=== PATIENT | female | born 1990 | race Two or more races ===

== ENCOUNTER 2025-02-03 20:28 | Emergency (ER) | payer OTHER ==
[~2025-02-03] VITALS: Ht 157.5 cm; Wt 147.0 kg
--- NOTE | 2025-02-03 20:44 | ED.PDOC ---
SOB-HPI HPI Comments 34-year-old female with PMHx Asthma presents with a chief complaint of SOB at rest x 3 hours with associated wheezing and cough. Patient states that she has been feeling increasingly SOB and attempted to alleviate it with her inhaler at home, but denies any relief after usage. Patient relays that she has a cough that is productive. Patient denies any sick contacts at home. Patient was sating at 81% on room air and was placed on 2L/NC and is now sating at 98%. Patient does not use supplemental oxygen at home. Patient denies any chest pain, abdomen pain, headache, nausea, vomiting, or diarrhea. No other symptoms or modifying factors present at this time. Chief Complaint: Shortness of Breath Time Seen by MD: 20:37 Reviewed notes: Medications, Allergies Information Source: Patient Mode of Arrival: Wheelchair Severity: Moderate Timing: Hours Duration: Since onset Context: At Rest PE Risk Factors: None History of: Asthma Prehospital treatment: Other (INHALER) Modifying Factors: Exertion Associated Signs and Symptoms: Wheeze, Cough If cough with SOB: Productive Past Medical History PAST MEDICAL HISTORY: Asthma Past Medical History (Other): SINUSITIS Surgical History: Denies all surgeries [employer] History: Denies all [employer] Hx Family History Family History: Reviewed,noncontributory to illness Social History Smoker: Non-Smoker Alcohol: Denies ETOH Use Drugs: Denies Drug Use Lives In: Home Constitutional: denies: chills, diaphoresis, fatigue, fever, malaise, sweats, weakness, others EENTM: denies: blurred vision, double vision, ear bleeding, ear discharge, ear drainage, ear pain, ear ringing, eye pain, eye redness, hearing loss, mouth pain, mouth swelling, nasal discharge, nose bleeding, nose congestion, nose pain, photophobia, tearing, throat pain, throat swelling, voice changes, others Respiratory: reports: cough, shortness of breath, wheezing; denies: hemoptysis, orthopnea, SOB at rest, SOB with excertion, stridor, others Cardiovascular: denies: chest pain, dizzy spells, diaphoresis, Dyspnea on exertion, edema, irregular heart beat, left arm pain, lightheadedness, palpitations, PND, syncope, others Gastrointestinal: denies: abdomen distended, abdominal pain, blood streaked bowels, constipated, diarrhea, dysphagia, difficulty swallowing, hematemesis, melena, nausea, poor appetite, poor fluid intake, rectal bleeding, rectal pain, vomiting, others Genitourinary: denies: abnormal vagina bleeding, burning, dyspareunia, dysuria, flank pain, frequency, hematuria, incontinence, pain, , vagina discharge , urgency, others Neurological: denies: dizziness, fainting, headache, left sided numbness, left sided weakness, numbness, paresthesia, pre-existing deficit, right sided numbness, right sided weakness, seizure, speech problems, tingling, tremors, weakness, others Musculoskeletal: denies: back pain, gout, joint pain, joint swelling, muscle pain, muscle stiffness, neck pain, others Integumetry: denies: bruises, change in color, change in hair/nails, dryness, laceration, lesions, lumps, rash, wounds, others Allergic/Immunocompromised: denies: Difficulty Healing, Frequent Infections, Hives, Itching, others Hematologic/Lymphatic: denies: anemia, blood clots, easy bleeding, easy bruising, swollen glands, others Endocrine: denies: excessive hunger, excessive sweating, excessive thirst, excessive urination, flushing, intolerance to cold, intolerance to heat, unexplained weight gain, unexplained weight loss, others Psychiatric: denies: anxiety, bipolar disorder, depression, hopeless, panic di sorder, schizophrenia, sleepless, suicidal, others All Other Systems: Reviewed and Negative Physical Exam General Appearance: Mild Distress, Obese HEENT: Normal ENT Inspection, Pharynx Normal, TMs Normal Neck: NOT DONE Respiratory: Wheezing (Diffuse Bilateral inspiratory and expiratory wheezes) Cardiovascular: No Edema, No JVD, No Murmur, No Gallop, Normal Peripheral Pulses, Regular Rate/Rhythm Breast Exam: Deferred Gastrointestinal: No Organomegaly, Non Tender, No Pulsatile Mass, Normal Bowel Sounds, Soft Genitalia: Deferred Pelvic: Deferred Rectal: Deferred Extremities: No calf tenderness, Normal capillary refill, Normal inspection, Normal range of motion, Non-tender, No pedal edema Musculoskeletal : Apperance: Normal Neurologic: Alert, tech writer II-XII nml as Tested, No Motor Deficits, Normal Affect, Normal Mood, No Sensory Deficits Cerebellar Function: Normal Reflexes: NOT DONE Skin: Dry, Normal Color, Warm Lymphatic: No Adenopathy Was a procedure done? Was a procedure done?: No Differential Dx Differential Diagnosis: Asthma, Bronchitis, Pneumonia, Sinusitis, Allergic Rhinitis, URI X-Ray, Labs, Meds, VS Vital Signs Date Time Temp Pulse Resp B/P (MAP) Pulse Ox O2 Delivery O2 Flow Rate FiO2 02/03/25 21:34 18 98 Nasal Cannula* 1 24 02/03/25 21:29 96 19 94 Room Air 02/03/25 21:29 98.4 96 19 162/76 (104) 94 98.4 02/03/25 21:01 19 96 Room Air* 0 21 02/03/25 20:40 98.4 109 28 155/83 (107) 99 98.4 Lab Test 02/03/25 21:15 02/03/25 20:53 Range/Units Influenza Type A Antigen Negative Negative Influenza Type B Antigen Negative Negative SARS-CoV-2 Antigen (Rapid) Negative NEGATIVE White Blood Count 8.4 4.4-10.8 10^3/uL Red Blood Count 4.61 4.0-5.20 10^6/uL Hemoglobin 13.0 12.2-16.2 g/dL Hematocrit 40.1 36.0-46.0 % Mean Corpuscular Volume 87.0 80.0-100.0 fL Mean Corpuscular Hemoglobin 28.1 28.0-32.0 pg Mean Corpuscular Hemoglobin Concent 32.3 32.0-36.0 g/dL Red Cell Distribution Width 14.9 H 11.8-14.3 % Platelet Count 278 140-450 10^3/uL Mean Platelet Volume 8.0 6.9-10.8 fL Neutrophils (%) (Auto) 57.1 37.0-80.0 % Lymphocytes (%) (Auto) 33.0 10.0-50.0 % Monocytes (%) (Auto) 6.2 0.0-12.0 % Eosinophils (%) (Auto) 3.1 0.0-7.0 % Basophils (%) (Auto) 0.6 0.0-2.0 % Neutrophils # (Auto) 4.8 1.6-8.6 10 ^3/uL Lymphocytes # (Auto) 2.8 0.4-5.4 10 ^3/uL Monocytes # (Auto) 0.5 0-1.3 10 ^3/uL Eosinophils # (Auto) 0.3 0-0.8 10 ^3/uL Basophils # (Auto) 0.1 0-0.2 10 ^3/uL Nucleated Red Blood Cells 0.1 % Sodium Level 142 136-145 mmol/L Potassium Level 3.8 3.5-5.1 mmol/L Chloride Level 106 98-107 mmol/L Carbon Dioxide Level 28 20-31 mmol/L Anion Gap 8 5-15 Blood Urea Nitrogen 14 9-23 mg/dL Creatinine 0.88 0.550-1.02 mg/dL Glomerular Filtration Rate Calc 89 >90 mL/min BUN/Creatinine Ratio 15.9 10.0-20.0 Serum Glucose 149 H 74-106 mg/dL Calcium Level 9.4 8.7-10.4 mg/dL Current Medications Medications (Trade) Dose Ordered Sig/Ivon Route Start Time Stop Time Status Last Admin Albuterol (Ventolin Medneb) 5 mg ONCE ONCE NEB 02/03/25 20:45 02/03/25 20:46 DC 02/03/25 20:58 Ipratropium [place] (Atrovent Medneb) 0.5 mg ONCE ONCE NEB 02/03/25 20:45 02/03/25 20:46 DC 02/03/25 20:58 Prednisone 60 mg ONCE ONCE PO 02/03/25 20:45 02/03/25 20:46 DC 02/03/25 21:07 Albuterol (Ventolin Medneb) 10 mg ONCE ONCE NEB 02/03/25 21:30 02/03/25 21:31 DC 02/03/25 21:30 Ipratropium [place] (Atrovent Medneb) 0.5 mg ONCE ONCE NEB 02/03/25 21:30 02/03/25 21:31 DC 02/03/25 21:31 X-Ray, Labs, Meds, VS Comment CXR IMPRESSION: 1. Bilateral perihilar peribronchial thickening possible changes suggesting bronchitis. MDM: Patient with history as above presented with Shortness of breath. History obtained from patient. Patient was nontoxic, stable, afebrile, in wheelchair, mild distress. Exam as above. Labs reviewed. CBC was unremarkable. No anemia, no leukocytosis. CMP did not show any electrolyte abnormalities. COVID and influenza swabs were negative.. Independently reviewed imaging. Chest x-ray showed bilateral perihilar thickening, likely bronchitis. Reviewed external records. All findings were discussed with the patient. Differential diagnosis considered. Overall presentation is consistent with acute asthma exacerbation due to bronchitis. Low suspicion for pneumonia, respiratory failure. Patient was treated with DuoNeb and prednisone with improvement in symptoms. Patient was reevaluated and vital signs were reviewed. Consideration was given for admission, but the patient was stable for outpatient management. Patient was prescribed albuterol inhaler and prednisone for outpatient treatment. Disposition: Discussed the need to follow up diagnostics, including incidental findings. Discharged the patient with instructions to obtain outpatient follow up in 1-2 days of today's symptoms and findings, with strict return precautions if patient develops new or worsening symptoms. This medical document was created using the [employer] system. Although this document has been carefully reviewed, there may still be some phonetic and typographical errors, which are due to imperfections of the software program, and do not reflect any compromise in the patient's medical care. Time of 1ST Reevaluation: 21:09 Reevaluation 1ST: Unchanged Time of 2ND Reevaluation: 21:44 Reevaluation 2ND: Improved Time of 3RD Reevaluation: 22:04 Reevaluation 3RD: Improved Patient Education/Counseling: Diagnosis, Treatment, Prognosis Family Education/Counseling: No Family Present Departure 1 Departure Time of Disposition: 22:04 Impression: Primary Impression: Acute bronchitis Qualified Codes: J20.9 - Acute bronchitis, unspecified Additional Impression: Asthma exacerbation Qualified Codes: J45.901 - Unspecified asthma with (acute) exacerbation Disposition: 01 HOME / SELF CARE / HOMELESS Condition: Fair e-Prescriptions Prednisone (Prednisone) 20 Mg Tab 60 MG PO DAILY for 5 Days, #15 TAB Prov: ROBERT NULL PAC 02/03/25 Albuterol Sulfate (Albuterol Sulfate Hfa) 108 Mcg/Act Aer 108 MCG IN Q4HPRN PRN, #1 AER Prov: ROBERT NULL 02/03/25 Critical Care Note Critical Care Time?: No Stability Stability form required: No Heart Score Heart Score: Heart Score Response (Comments) Value History N/A 0 EKG N/A 0 Age N/A 0 Risk Factors N/A 0 Troponin N/A 0 Total 0 I personally scribed for CHEO JONES MD ([email or web address]) on 3/23/25 at 20:57. Electronically submitted by Srikanth Ruiz ([email or web address]). ROBERT NULL Feb 03, 2025 20:44 CHEO JONES MD Feb 03, 2025 20:57
[2025-02-03] MEDS: ALBUTEROL SULF 2.5 MG/0.5ML(0.5%) NEB SOLN NEB ONE ×2 (20:58→21:30)
[2025-02-03] MEDS: IPRATROPIUM BROM 0.5 MG/2.5ML INH SOL NEB ONE ×2 (20:58→21:31)
[2025-02-03 21:05] LABS: Basophils # (auto) 0.1 10 ^3/uL (0-0.2); Basophils % (auto) 0.6 % (0.0-2.0); Eosinophils # (auto) 0.3 10 ^3/uL (0-0.8); Eosinophils % (auto) 3.1 % (0.0-7.0); Hematocrit 40.1 % (36.0-46.0); Lymphocytes # (auto) 2.8 10 ^3/uL (0.4-5.4); Mean Corpuscular Hemoglobin 28.1 pg (28.0-32.0); Mean Corpuscular Hgb Conc. 32.3 g/dL (32.0-36.0); Monocytes # (auto) 0.5 10 ^3/uL (0-1.3); Monocytes % (auto) 6.2 % (0.0-12.0); Neutrophils # (auto) 4.8 10 ^3/uL (1.6-8.6); Neutrophils % (auto) 57.1 % (37.0-80.0); Nucleated Red Blood Cells % 0.1 %; Platelet Count (auto) 278 10^3/uL (140-450); Red Blood Cells 4.61 10^6/uL (4.0-5.20); Red Cell Distribution Width 14.9 % (11.8-14.3); White Blood Cell 8.4 10^3/uL (4.4-10.8)
[2025-02-03] MEDS: predniSONE 20 MG TAB PO ONE (21:07)
--- NOTE | 2025-02-03 21:08 | DVH ---
CHEST RADIOGRAPH Indication: R/o pneumonia Technique: Single frontal view of the chest was obtained Comparison: None FINDINGS: Lines and Tubes: None Lungs: Bilateral perihilar peribronchial thickening findings may represent bronchitis Pleura: No effusion. No pneumothorax. Cardiomediastinal contours: Unremarkable Bones: No acute osseous abnormality. IMPRESSION: 1. Bilateral perihilar peribronchial thickening possible changes suggesting bronchitis.
[2025-02-03 21:09] LABS: Chloride 106 mmol/L (98-107); Potassium 3.8 mmol/L (3.5-5.1); Sodium 142 mmol/L (136-145)
[2025-02-03 21:10] LABS: Anion Gap 8 (5-15); Calcium 9.4 mg/dL (8.7-10.4); Carbon Dioxide 28 mmol/L (20-31)
[2025-02-03 21:15] LABS: BUN/Creatinine Ratio 15.9 (10.0-20.0); Blood Urea Nitrogen 14 mg/dL (9-23); Glucose 149 mg/dL (74-106)
[2025-02-03 21:29] VITALS: BP 162/76; PULSE 96; TEMP 98.4
[2025-02-03 21:34] VITALS: RESP 18; O2SAT 98
[2025-02-03 21:52] LABS: COVID19 ANTIGEN SOFIA FIA NEGATIVE (NEGATIVE); Rapid Influenza A Negative (Negative); Rapid Influenza B Negative (Negative)
[2025-02-03] MEDS ORDERED: PRED20TA2 PO (22:05)
[2025-02-03] MEDS ORDERED: ALBU108A5 IN (22:05)
== END 2025-02-03 22:11 | disposition home or self-care (01) ==
LOC: ER 20:28
DX: J45.901 Unspecified asthma with (acute) exacerbation (principal); J20.9 Acute bronchitis, unspecified; Z20.822 Contact with and (suspected) exposure to COVID-19
CPT/HCPCS: 36415; 71045; 80048; 85025; 87426; 87804; 94640; 99284; J7512